=== PATIENT | male | born 1955 | race Caucasian/White ===

== ENCOUNTER → 2019-06-16 | Outpatient (CLI) | payer SELFPAY ==
[~2019-06-16] MED LIST: OMEPRAZOLE20 MG PO; Zofran4 MG PO
== END | disposition home or self-care (01) ==
LOC: LAB 11:30 → LAB SHORT 11:30
DX: R30.0 Dysuria (principal)
CPT/HCPCS: 87077; 87086; 87186

== ENCOUNTER 2024-12-10 08:48 | Day surgery (SDC) | payer OTHER ==
[~2024-12-10] VITALS: Ht 175.3 cm; Wt 92.5 kg
[~2024-12-10 08:48] MED LIST changes: +FentaNYL Citrate 50 MCG/ML 2 ML Injection ONE; +Midazolam HCl 1MG / ML 2ML Vial ONE; +NS 500 ML IV ONE
[2024-12-10] MEDS ORDERED: Aspir 8181 MG PO (09:33)
[2024-12-10] MEDS ORDERED: EFFEXOR XR37.5 MG PO (09:34)
[2024-12-10] MEDS ORDERED: ALPRAZOLAM0.5 M1 PO (09:34)
[2024-12-10] MEDS ORDERED: NS 500 ML IV ONE (09:42)
--- NOTE | 2024-12-10 09:54 | NUR ---
12/10/24 0954 Danica Boyd 0943: TIMEOUT AND PRE-OP INJECTION OF 7 CC IF MIX OF 9 CC LIDOCAINE 1% WITH EPI 1:100,000 WITH 1 CC SODIUM BICARB LEFT SIDE AND 7 CC OF THE SAME MIX TO R SIDE
[2024-12-10] MEDS ORDERED: Midazolam HCl 1MG / ML 2ML Vial ONE (10:05)
[2024-12-10 10:28] VITALS: BP 126/79
== END 2024-12-10 10:59 | disposition home or self-care (01) ==
LOC: ORSCSDS 08:48
PROVIDERS: Orthopaedic Surgery
PROC: 01N54ZZ Release Median Nerve, Percutaneous Endoscopic Approach (ICD-10-PCS; principal; 2024-12-10 10:30)
DX: G56.03 Carpal tunnel syndrome, bilateral upper limbs (principal); K21.9 Gastro-esophageal reflux disease without esophagitis; F41.9 Anxiety disorder, unspecified; Z79.899 Other long term (current) drug therapy
CPT/HCPCS: J2250; J3010; J7040